=== PATIENT | male | born 2000 | race Caucasian/White ===

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

== ENCOUNTER 2021-05-03 21:28 | Emergency (ER) | payer SELFPAY ==
[~2021-05-03] VITALS: Ht 188 cm; Wt 77.1 kg
[2021-05-03 21:59] VITALS: BP 154/72
[2021-05-03 22:25] LABS: Basophils # (auto) 0.1 10 ^3/uL (0-0.2); Basophils % (auto) 0.6 % (0.0-2.0); Eosinophils # (auto) 0.2 10 ^3/uL (0-0.8); Eosinophils % (auto) 2.1 % (0.0-7.0); Hematocrit 47.9 % (41.0-53.0); Hemoglobin 16.2 g/dL (13.5-17.5); Lymphocytes # (auto) 2.2 10 ^3/uL (0.4-5.4); Mean Corpuscular Hemoglobin 31.5 pg (28.0-32.0); Mean Corpuscular Hgb Conc. 33.9 g/dL (32.0-36.0); Mean Corpuscular Volume 92.8 fL (80.0-100.0); Monocytes # (auto) 1.1 10 ^3/uL (0-1.3); Monocytes % (auto) 10.9 % (0.0-12.0); Neutrophils # (auto) 6.3 10 ^3/uL (1.6-8.6); Neutrophils % (auto) 64.4 % (37.0-80.0); Red Blood Cells 5.16 10^6/uL (4.5-5.90); White Blood Cell 9.8 10^3/uL (4.4-10.8)
[2021-05-03 22:45] LABS: Albumin 4.4 g/dL (3.4-5.0); Calcium 8.6 mg/dL (8.5-10.1); Potassium 4.1 mmol/L (3.5-5.1)
[2021-05-03 22:47] LABS: BUN/Creatinine Ratio 16.7
[2021-05-03 22:56] LABS: Bilirubin, Total 0.4 mg/dL (0.2-1.0); Total Protein 7.3 g/dL (6.4-8.2)
[2021-05-03 23:26] LABS: Urine WBC None Seen /hpf (0 - 3)
[2021-05-04 00:09] LABS: Urine Amorphous Crystal FEW /hpf (None Seen); Urine Bacteria NONE SEEN /hpf (None Seen); Urine Blood Negative /uL (Negative); Urine Specific Gravity 1.018 (1.001-1.035)
== END 2021-05-04 07:23 | disposition left against medical advice (07) ==
LOC: ER 21:32
DX: R55 Syncope and collapse (principal); Z53.21 Procedure and treatment not carried out due to patient leaving prior to being seen by health care provider
CPT/HCPCS: 36415; 80053; 81001; 82962; 85025; 93005

== ENCOUNTER 2022-01-01 19:05 | Emergency (ER) | payer MEDICAID, OTHER ==
[~2022-01-01] VITALS: Ht 188 cm; Wt 80.0 kg
[2022-01-01 19:54] LABS: Basophils # (auto) 0 10 ^3/uL (0-0.2); Basophils % (auto) 0.5 % (0.0-2.0); Eosinophils # (auto) 0.2 10 ^3/uL (0-0.8); Eosinophils % (auto) 1.9 % (0.0-7.0); Lymphocytes # (auto) 2.2 10 ^3/uL (0.4-5.4); Lymphocytes % (auto) 25.1 % (10.0-50.0); Mean Corpuscular Hemoglobin 31.1 pg (28.0-32.0); Mean Corpuscular Hgb Conc. 33.3 g/dL (32.0-36.0); Mean Corpuscular Volume 93.4 fL (80.0-100.0); Monocytes # (auto) 0.7 10 ^3/uL (0-1.3); Monocytes % (auto) 7.7 % (0.0-12.0); Neutrophils # (auto) 5.6 10 ^3/uL (1.6-8.6); Neutrophils % (auto) 64.8 % (37.0-80.0); Nucleated Red Blood Cells % 0.1 %; Red Blood Cells 4.81 10^6/uL (4.5-5.90); Red Cell Distribution Width 13.3 % (11.8-14.3); White Blood Cell 8.6 10^3/uL (4.4-10.8)
[2022-01-01 20:14] LABS: INR 1.01 (0.9-1.15); Partial Thromboplastin Time 22.5 sec (24.6-33.4)
[2022-01-01 23:19] VITALS: BP 103/62
[2022-01-01 23:29] LABS: Albumin 4.1 g/dL (3.4-5.0); BUN/Creatinine Ratio 16.8; Calcium 8.3 mg/dL (8.5-10.1); Magnesium 2.5 mg/dL (1.6-2.6); Potassium 4.4 mmol/L (3.5-5.1)
[2022-01-01 23:33] LABS: Bilirubin, Total 0.5 mg/dL (0.2-1.0); Total Protein 7.4 g/dL (6.4-8.2)
== END 2022-01-01 23:39 | disposition home or self-care (01) ==
LOC: EDBD 19:05 → ER 19:05
DX: R55 Syncope and collapse (principal); F12.10 Cannabis abuse, uncomplicated; F10.10 Alcohol abuse, uncomplicated; Y90.9 Presence of alcohol in blood, level not specified; J45.909 Unspecified asthma, uncomplicated; Z88.1 Allergy status to other antibiotic agents
CPT/HCPCS: 36415; 71045; 80053; 83735; 83880; 84443; 84484; 85025; 85610; 85730; 93005